=== PATIENT | female | born 1980 | race Caucasian/White ===

== ENCOUNTER 2022-05-21 13:01 | Observation (INO) | payer OTHER ==
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
[2022-05-21 18:19] LABS: Appearance,Urine Cloudy (Clear); Bilirubin,Urine Negative (Negative); Blood,Urine Small (Negative); Color,Urine Yellow; Glucose,Urine (UA) Negative (Negative); Leukocyte Esterase,Urine Small (Negative); Mucus,Urine Many /hpf; Nitrite,Urine Negative (Negative); Protein,Urine 1+ (Negative); RBC,Urine 8 /hpf (0-5); Specific Gravity,Urine 1.031 (1.001-1.035); Squamous Epithelial Cell,Urine 9 /hpf (0-4); WBC,Urine 3 /hpf (0-5)
[2022-05-21 18:21] LABS: Ketones,Urine 2+ (Negative)
[2022-05-21 18:24] LABS: Amphetamine Screen,Urine Not Detected (NotDetected); Barbiturate Screen,Urine Not Detected (NotDetected); Benzodiazepines Screen,Urine Not Detected (NotDetected); Cocaine Screen,Urine Not Detected (NotDetected); Methadone Screen, Urine Not Detected (NotDetected); Opiate Screen,Urine Not Detected (NotDetected); Oxycodone Screen, Urine Not Detected (NotDetected); Phencyclidine Screen,Urine Not Detected (NotDetected); Tricyclic Antidepressant,Urine Detected (NotDetected); Urn Cannabinoid Scrn Detected (NotDetected)
[2022-05-21] MEDS ORDERED: ALPRAZolam 1 MG TAB PO STA (22:49)
[2022-05-22] MEDS ORDERED: NALOXONE 0.4 MG/ML 1 ML VIAL IV PRN (04:23)
[2022-05-22] MEDS ORDERED: ACETAMINOPHEN TAB 325 MG TAB PO PRN (04:23)
[2022-05-22] MEDS ORDERED: IBUPROFEN 400 MG TAB PO PRN (04:23)
[2022-05-22] MEDS: SODIUM CHLORIDE 0.9% 1,000 ML IV SCH ×2 (08:31→17:50)
--- NOTE | 2022-05-22 09:15 | XR ---
EXAMINATION TYPE: XR chest 1V portable DATE OF EXAM: 05/22/2022 COMPARISON: NONE HISTORY: Pneumonia TECHNIQUE: Single frontal view of the chest is obtained. FINDINGS: There is no focal air space opacity, pleural effusion, or pneumothorax seen. The cardiac silhouette size is within normal limits. There are overlying artifacts. Patient is rotated. Lung volu mes are low. The osseous structures are intact. IMPRESSION: No acute process.
--- NOTE | 2022-05-22 10:30 | P.HPIM ---
History of Present Illness Patient came in with symptoms of acute psychosis and psychiatry evaluation. Patient was later found to have positive Covid because of his patient was admitted to medicine service. Patient isn't symptomatic at this time saturating well. Patient had paranoid and delusional it's. Patient is on propranolol for hypertension although her heart rate and blood pressure are well controlled and blood pressure is actually low normal because of which I'm holding this medication. Chest x-ray did not show any significant abnormality patient only had low-grade fever REVIEW OF SYSTEMS: CONSTITUTIONAL: No fever, no malaise, no fatigue. HEENT: No recent visual problems or hearing problems. Denied any sore throat. CARDIOVASCULAR: No chest pain, orthopnea, PND, no palpitations, no syncope. PULMONARY: No shortness of breath, no cough, no hemoptysis. GASTROINTESTINAL: No diarrhea, no nausea, no vomiting, no abdominal pain. NEUROLOGICAL: No headaches, no weakness, no numbness. HEMATOLOGICAL: Denies any bleeding or petechiae. GENITOURINARY: Denies any burning micturition, frequency, or urgency. MUSCULOSKELETAL/RHEUMATOLOGICAL: Denies any joint pain, swelling, or any muscle pain. ENDOCRINE: Denies any polyuria or polydipsia. The rest of the 14-point review of systems is negative. PHYSICAL EXAMINATION: GENERAL: The patient is alert and oriented x3, not in any acute distress. Well developed, well nourished. HEENT: Pupils are round and equally reacting to light. EOMI. No scleral icterus. No conjunctival pallor. Normocephalic, atraumatic. No pharyngeal erythema. No thyromegaly. CARDIOVASCULAR: S1 and S2 present. No murmurs, rubs, or gallops. PULMONARY: Chest is clear to auscultation, no wheezing or crackles. ABDOMEN: Soft, nontender, nondistended, normoactive bowel sounds. No palpable organomegaly. MUSCULOSKELETAL: No joint swelling or deformity. EXTREMITIES: No cyanosis, clubbing, or pedal edema. NEUROLOGICAL: Gross neurological examination did not reveal any focal deficits. SKIN: No rashes. Assessment and plan -Acute psychosis management as per psychiatry -COVID-19 infection incidental finding, no further intervention at this time. Patient will be on isolation. -History of hypertension patient doesn't appear to have essential hypertension this time discontinue propranolol -Major depression DVT prophylaxis: Early ambulation Past Medical History Past Medical History: Hyperlipidemia, Hypertension History of Any Multi-Drug Resistant Organisms: None Reported Past Surgical History: Cholecystectomy Past Psychological History: Anxiety, Depression Past Alcohol Use History: None Reported Past Drug Use History: Marijuana Medications and Allergies Home Medications Medication Instructions Recorded Confirmed Type ALPRAZolam [Xanax] 1 mg PO BID 05/21/22 05/21/22 History Propranolol HCl 80 mg PO DAILY 05/21/22 05/21/22 History Sertraline [Zoloft] 100 mg PO DAILY 05/21/22 05/21/22 History Allergies Allergy/AdvReac Type Severity Reaction Status Date / Time No Known Allergies Allergy Verified 05/21/22 16:11 Physical Exam Vitals: Vital Signs Temp Pulse Resp BP Pulse Ox 05/22/22 08:35 98.0 F 75 18 105/74 96 05/22/22 06:30 74 111/68 05/21/22 18:39 99.7 F H 74 16 113/73 94 L 05/21/22 13:05 98.8 F 85 18 8/1 98 Results Labs: Abnormal Lab Results - Last 24 Hours (Table) 05/21/22 05/21/22 Range/Units 17:00 20:00 Urine Appearance Cloudy H (Clear) Urine Protein 1+ H (Negative) Urine Ketones 2+ H (Negative) Urine Blood Small H (Negative) Ur Leukocyte Esterase Small H (Negative) Urine RBC 8 H (0-5) /hpf Ur Squamous Epith Cells 9 H (0-4) /hpf Urine Mucus Many H (None) /hpf U Tricyclic Antidepress Detected H (NotDetected) U Marijuana (THC) Screen Detected H (NotDetected) Coronavirus (PCR) Detected A (Not Detectd)
[2022-05-22 12:03] LABS: Basophils % (A) 1 %; Eosinophils % (A) 0 %; HCT 44.8 % (34.0-46.0); Lymphocytes # (A) 1.3 k/uL (1.0-4.8); Lymphocytes % (A) 41 %; MCH 28.6 pg (25.0-35.0); MCHC 31.4 g/dL (31.0-37.0); MCV 91.3 fL (80.0-100.0); Mean Platelet Volume 9.1; Monocytes # (A) 0.3 k/uL (0-1.0); Monocytes % (A) 8 %; Neutrophils # (A) 1.6 k/uL (1.3-7.7); Neutrophils % (A) 47 %; Platelet Count 148 k/uL (150-450); RDW 14.1 % (11.5-15.5); WBC 3.3 k/uL (3.8-10.6)
[2022-05-22 12:20] LABS: ALT 37 U/L (4-34); AST 67 U/L (14-36); African American GFR (CKD) >90 (>60 ml/min/1.73 sqM); Albumin/Globulin Ratio 1.3; Alkaline Phosphatase 120 U/L (38-126); Anion Gap 8 mmol/L; Blood Urea Nitrogen 10 mg/dL (7-17); C Reactive Protein 2.5 mg/dL (<1.0); Calcium 8.5 mg/dL (8.4-10.2); Carbon Dioxide 26 mmol/L (22-30); Chloride 102 mmol/L (98-107); Globulin 3.2 g/dL; Glucose 74 mg/dL (74-99); LDH 596 U/L (313-618); Non-African American GFR(CKD) >90 (>60 ml/min/1.73 sqM); Potassium 3.3 mmol/L (3.5-5.1); Sodium 136 mmol/L (137-145); Total Bilirubin 0.3 mg/dL (0.2-1.3); Total Protein 7.2 g/dL (6.3-8.2)
--- NOTE | 2022-05-22 14:05 | P.CN ---
Psychiatric Consult - . Consult date: 05/22/22 Consult:: 05/22/22 13:26 IDENTIFYING DATA: This patient is a 42-year-old female who currently lives with her boyfriend, has 2 kids and is unemployed. She currently resides in [place] however was in [place] recently. REASON FOR REFERRAL: Psychiatry was consulted for suicidal ideations HISTORY OF PRESENT ILLNESS: The patient presented to the hospital for psychiatric evaluation. According to ER report patient had weaned herself off of Xanax for the past 3 weeks. She apparently was trying to get off the medication showing so she wouldn't be addicted. She states that she is seeing a psychiatrist in [place] where she lives. She claims that she has been up in [place] lately and was supposed to head back to [place] May 27. She states that she is helping celebrated her daughter's graduation. She states that in [place] she sees a psychiatrist who has been prescribing her Zoloft. She states that she has been having increase in suicidal thoughts and depression lately since being off of the Xanax. She is positive for TCAs and THC in her UDS. Patient was supposed to be admitted to the mental health unit however tested positive for covid 19. Patient has been admitted medically. She claims that she has been seeing and her parents while she is in [place]. She states that she was having increase in stomach pain and also other pain in her body and that's what I asked her later come to the hospital. She claims that she was taking Xanax 1 mg twice a day and receive Xanax yesterday. She states that she has been having several stressors lately however mainly because her daughter wants to move out and live with her boyfriend. At this time patient denies any suicidal or homical ideations, intent or plan. Patient denies any auditory, visual hallucinations and denies any paranoia or delusions. Patients admits to using marijuana daily and cigarettes daily. PAST PSYCHIATRIC HISTORY: Patient has a a history of anxiety and depression. She claims that she was on Xanax however titrated to herself off of it. She is to be on 1 mg twice a day. She is currently on Zoloft 1 mg daily. Patient denies any previous psychiatric hospitalizations. She claims that she follows up with her psychiatrist in [place]. Patient denies any history of suicide attempts in the past. Past Medical History: Hyperlipidemia, Hypertension ALLERGIES: as per EMR. CHEMICAL DEPENDENCY HISTORY: as per HPI. FAMILY PSYCHIATRIC/SUBSTANCE USE HISTORY: Since that her uncle has bipolar disorder SOCIAL HISTORY: Patient was born and raised in [place] in the [facility]. He states that she completed high school. 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 She denies any legal history. She has 2 kids and lives with her boyfriend. She lives in [place]. MENTAL STATUS EXAM: General Appearance: Patient appears to be stated age is alert, pleasant, and tends to be cooperative. Patient appears to have fair hygiene and grooming wearing hospital gown with poor eye contact. Behavior: Patient is calmly lying in bed without any agitated behavior. Constricted. Monotone. Speech: Patient's speech is fluent and nonpressured. [place]. Mood/Affect: Patient reports their mood is "depressed and anxious", affect is congruent and constricted Suicidality/Homicidality: Patient denies having any suicidal or homicidal ideation intent or plan. Perceptions: Patient denies any visual hallucinations and denies any auditory h allucinations Though content/process: There is no evidence of any delusional thought content and thought process is linear and goal-directed. Memory and concentration: AOX3, grossly intact for the purposes of this session. Can spell "WORLD" backwards Judgment and insight: poor IMPRESSIONS: Major depressive disorder, without psychotic features Anxiety disorder unspecified Cannabis use disorder mild Nicotine dependence PLAN: -At this time will continue to follow along and treat patient while she is in the hospital to treat her depression and anxiety. She does not qualify for inpatient psych admission as she is COVID positive. -Would recommend the following medication changes/additions: Restart Zoloft 100 mg daily for mood/anxiety, Remeron 15 mg daily at bedtime for anxiety/mood/insomnia. -CIWA protocol with PRN Ativan for alcohol withdrawal. Continue to monitor vital signs. -Continue 1:1 sitter for safety -pipe assembly worker to provide patient with outpatient mental health/psychiatry r esources for appropriate follow up upon discharge -Finish Carpenter spoke with patient about substance abuse and the harmful effects on medical and mental health, patient verbally understood and agreed. -Communicated plan to patient's nurse -Will continue to follow along -Please contact with any questions. 05/22/22 13:58
[2022-05-22] MEDS: SERTRALINE 100 MG TAB PO SCH (16:24)
[2022-05-22] MEDS ORDERED: MIRTAZAPINE 15 MG TAB PO SCH (21:00)
[2022-05-23] MEDS: SODIUM CHLORIDE 0.9% 1,000 ML IV SCH ×3 (03:37→12:07)
[2022-05-23] MEDS: SERTRALINE 100 MG TAB PO SCH (08:42)
[2022-05-23 11:34] VITALS: BMI 31.8
[2022-05-23] MEDS ORDERED: SERTRALINE 50 MG TAB PO STA (11:34)
--- NOTE | 2022-05-23 11:37 | P.PN ---
Progress Note - Text Progress Note Date: 05/23/22 Interval History: Patient was seen for psychiatric follow-up regarding patient's depression and anxiety and was directable to speak to telegraphic typewriter mechanic today. Patient's mother states that patient has been doing better in terms of her mood and is cooperative and apparently slept last night. Patient remains on a one-to-one sitter. Patient was seen today in agreeable to speak to telegraphic typewriter mechanic. She appears to be more awake and directable during conversation. She claims that she is doing better in terms of anxiety and mood. She spoke about her boyfriend and wanting to get back to [place]. She also was future oriented about her children and also her health. She currently follows up with a psychiatrist in [place]. She states that she is tolerating Zoloft well. We discussed several options and patient was okay with having her Zoloft increased to 150 mg. She states that she slept fairly last night with the Remeron and tolerated it well. Claims that her appetite is been improving. At this time patient denies any suicidal or homical ideations, intent or plan. Patient denies any auditory, visual hallucinations and denies any paranoia or delusions. Patient denies any side effects from the medications and has been compliant with meds. Mental Status Exam: General Appearance: Patient appears to be stated age is alert, pleasant, and tends to be cooperative. Patient appears to have fair hygiene and grooming wearing hospital gown with improved eye contact. Behavior: Patient is calmly lying in bed without any agitated behavior. Her cooperative today. Speech: Patient's speech is fluent and nonpressured. Mood/Affect: Patient reports their mood is "better", affect is congruent Suicidality/Homicidality: Patient denies having any suicidal or homicidal ideation intent or plan. Perceptions: Patient denies any visual hallucinations and denies any auditory hallucinations Though content/process: There is no evidence of any delusional thought content and thought process is linear and goal-directed. Future oriented today. Memory and concentration: AOX3, grossly intact for the purposes of this session Judgment and insight: Improving IMPRESSIONS: Major depressive disorder, without psychotic features Anxiety disorder unspecified Cannabis use disorder mild Nicotine dependence PLAN: -At this time will continue to follow along and treat patient while she is in the hospital to treat her depression and anxiety. She does not qualify for inpatient psych admission as she is COVID positive. -Would recommend the following medication changes/additions: increased Zoloft 150 mg daily for mood/anxiety, Remeron 15 mg daily at bedtime for anxiety/mood/insomnia. -CIWA protocol with PRN Ativan for alcohol withdrawal. Continue to monitor vital signs. -discontinue 1:1 sitter today -music worker to provide patient with outpatient mental health/psychiatry resources for appropriate follow up upon discharge -[place] Encaser spoke with patient about substance abuse and the harmful effects on medical and mental health, patient verbally understood and agreed. -Communicated plan to patient's nurse -at this time psychiatry will sign off -Please contact with any questions.
[2022-05-23 15:26] VITALS: BP 114/69; PULSE 72; RESP 14; TEMP 98.7
--- NOTE | 2022-05-24 02:56 | P.DS ---
Providers Date of admission: 05/22/22 04:23 Expected date of discharge: 05/23/22 Attending physician: Xavi Burnett MD Consults: 05/22/22 04:23 Consult Physician Routine Consulting Provider: Misha Martin Consult Reason/Comments: Suicidal ideation Do you want consulting provider notified?: Yes Primary care physician: Stated None Hospital Course: Final diagnosis -Acute psychosis -COVID-19 infection incidental finding, asymptomatic -History of hypertension -Major depression -DVT prophylaxis Discharge disposition Patient is being discharged in a stable condition with guarded prognosis to home. Patient will follow-up with her pcp in [place] in the outpatient setting upon discharge. Patient zoloft increased. Total time taken is greater than 35 minutes. Hospital course This is a 42-year-old female who was recently admitted with acute psychosis and also found to be covid positive although asymptomatic. Patient has been evaluated by psychiatry and cleared for discharge and zoloft being resumed. Patient is visiting from [place] and encouraged to follow up with psychiatrist and pcp at home. Currently no reports of chest pain, shortness of breath, or palpitations. Patient is afebrile. No reports of nausea or vomiting and patient is tolerating diet. Patient will be discharged home today. Physical exam: Gen: This is a 42 year old female, awake, alert and oriented x3, well developed, well nourished. HEENT: Head is atraumatic, normocephalic. Pupils equal, round. Sclerae is anicteric. NECK: Supple. No JVD. No lymphadenopathy. No thyromegaly. LUNGS: Clear to auscultation. No wheezes or rhonchi. No intercostal retractions. HEART: Regular rate and rhythm. No murmur. ABDOMEN: Soft. Bowel sounds are present. No masses. No tenderness. EXTREMITIES: No pedal edema. No calf tenderness. NEUROLOGICAL: Patient is awake, alert and oriented x3. Cranial nerves 2 through 12 are grossly intact. Please refer to medication reconciliation sheet for a list of medications. The impression and plan of care has been dictated by Chen Walker, Nurse Practitioner as directed. Dr. Benji MD I have performed a history and examination and MDM of this patient, discussed the same with the dictator, and agree with the dictator's assessment and plan as written ,documented as a scribe. Based on total visit time, I have performed more than 50% of the visit. Patient Condition at Discharge: Good Plan - Discharge Summary Discharge Rx Participant: Yes New Discharge Prescriptions: New Mirtazapine [Remeron] 15 mg PO HS 30 Days #30 tab Sertraline [Zoloft] 150 mg PO DAILY 30 Days #30 tab Continue ALPRAZolam [Xanax] 1 mg PO BID Discontinued Sertraline [Zoloft] 100 mg PO DAILY Propranolol HCl 80 mg PO DAILY Discharge Medication List ALPRAZolam [Xanax] 1 mg PO BID 05/21/22 [History] Mirtazapine [Remeron] 15 mg PO HS 30 Days #30 tab 05/23/22 [Rx] Sertraline [Zoloft] 150 mg PO DAILY 30 Days #30 tab 05/23/22 [Rx] Follow up Appointment(s)/Referral(s): None,Stated [Primary Care Provider] - 1-2 days Patient Instructions/Handouts: Help Prevent Suicide (DC), COVID-19 (Coronavirus Disease 2019) (DC) Activity/Diet/Wound Care/Special Instructions: PERSONAL BELONGINGS IN BOTTOM RIGHT LOCKER ON 4S (returned to patient) *See [employer] for Indigent Funds if patient's insurance is not accepted at [facility]* activity limited until follow up follow up with pcp in [place] on discharge continue current medications Continue to isolate and wear a mask, follow isolation guidelines for covid Discharge Disposition: HOME SELF-CARE
[2022-05-24] MEDS ORDERED: SERTRALINE 100 MG TAB PO SCH (09:00)
== END 2022-05-23 18:00 | disposition home or self-care (01) ==
LOC: EC 13:01 → 4SSUR 05-22 04:23 → INTOOBSV 05-22 04:23 → 4SSUR 05-22 13:37 → UNDODISIN 05-23 18:00
PROVIDERS: ADMIT Internal Medicine; ATTEND Internal Medicine
PROC: HZ2ZZZZ Detoxification Services for Substance Abuse Treatment (ICD-10-PCS; principal; 2022-05-22)
DX: F23 Brief psychotic disorder (principal); U07.1 COVID-19; F32.9 Major depressive disorder, single episode, unspecified; F41.9 Anxiety disorder, unspecified; R45.851 Suicidal ideations; I10 Essential (primary) hypertension; E78.5 Hyperlipidemia, unspecified; F17.210 Nicotine dependence, cigarettes, uncomplicated; Z79.899 Other long term (current) drug therapy; Z90.49 Acquired absence of other specified parts of digestive tract; Z81.8 Family history of other mental and behavioral disorders
CPT/HCPCS: 96360; 96361; 82075; 99285; 85379; 80053; 83615; 85025; 86140; 81001; 81025; 80306; 84145; 87635; 71045; G0378 ×2